=== PATIENT | female | born 1990 | race Caucasian/White ===

== ENCOUNTER 2016-11-14 11:29 | Emergency (ER) | payer BC ==
[2016-11-14 11:45] LABS: Urine Bacteria Absent (Absent); Urine Bilirubin Negative (Negative); Urine Glucose Negative (Negative); Urine Nitrite Negative (Negative)
[2016-11-14 12:44] VITALS: BP 110/70
--- NOTE | 2016-11-14 12:53 | ED ---
GI/ HPI - HPI Summary HPI Summary: 26F presents with dysuria and pelvic pain today. She thinks she has a UTI. denies any fevers, n/v/d or flank pain. She states she is trying to get . Patient is an employee here. - History of Current Complaint Chief Complaint: EDUrogenitalProblems Time Seen by Provider: 11/14/16 11:44 Stated Complaint: POSSIBLE UTI Pain Intensity: 5 - Allergy/Home Medications Allergies/Adverse Reactions: Allergies Allergy/AdvReac Type Severity Reaction Status Date / Time No Known Allergies Allergy Verified 11/14/16 12:17 PMH/Surg Hx/FS Hx/Imm Hx Endocrine/Hematology History: Denies: Hx Anticoagulant Therapy Cardiovascular History: Denies: Hx Hypertension Infectious Disease History: No Infectious Disease History: Denies: Traveled Outside the [place] in Last 30 Days - Family History Known Family History: Positive: Hypertension - Social History Alcohol Use: Rare Substance Use Type: Reports: None Smoking Status (MU): Never Smoked Tobacco Review of Systems Negative: Fever Negative: Chest Pain Negative: Shortness Of Breath Positive: dysuria, frequency. Negative: flank pain All Other Systems Reviewed And Are Negative: Yes Physical Exam Triage Information Reviewed: Yes Vital Signs On Initial Exam: Initial Vitals Temp Pulse Resp BP Pulse Ox 98.2 F 77 18 113/62 100 11/14/16 12:16 11/14/16 12:16 11/14/16 12:16 11/14/16 12:16 11/14/16 12:16 Vital Signs Reviewed: Yes Appearance: Positive: Well-Appearing Skin: Positive: Warm, Dry Head/Face: Positive: Normal Head/Face Inspection Eyes: Positive: Normal, Conjunctiva Clear Respiratory/Lung Sounds: Positive: Clear to Auscultation, Breath Sounds Present Cardiovascular: Positive: Normal, RRR Abdomen Description: Positive: Nontender, Soft Bowel Sounds: Positive: Present Diagnostics - Vital Signs Vital Signs Temp Pulse Resp BP Pulse Ox 11/14/16 12:41 99.2 F 87 16 110/70 11/14/16 12:16 98.2 F 77 18 113/62 100 - Laboratory Lab Results: Lab Results 11/14/16 Range/Units 11:30 Urine Color Yellow Urine Appearance Cloudy Urine pH 7.0 (5-9) Ur Specific [place] 1.005 L (1.010-1.030) Urine Protein Negative (Negative) Urine Ketones Negative (Negative) Urine Blood 3+ H (Negative) Urine Nitrate Negative (Negative) Urine Bilirubin Negative (Negative) Urine Urobilinogen Negative (Negative) Ur Leukocyte Esterase 3+ H (Negative) Urine WBC (Auto) 3+(>20/hpf) H (Absent) Urine RBC (Auto) 1+(3-5/hpf) H (Absent) Ur Squamous Epith Cells Present H (Absent) Urine Bacteria Absent (Absent) Urine Glucose Negative (Negative) Lab Statement: Any lab studies that have been ordered have been reviewed, and results considered in the medical decision making process. GIGU Course/Dx - Course Course Of Treatment: 26 F presents with dysuria and frequency today. no fever, flank pain, n/v. urine shows WBC and leuko esterase. dicussed has uti initially patient said was not so ordered bactrim which patient took but then patient says is potential could be pregant so switched it to macrobid and told to stop bactrim. patient understands and agrees with plan. - Diagnoses Differential Diagnoses - Female: Ovarian Cyst, Urinary Tract Infection, Ureteral Calculi Provider Diagnoses: Urinary tract infection Discharge - Discharge Plan Condition: Stable Disposition: HOME Prescriptions: Nitrofurantoin Monohyd Macro [Macrobid] 100 mg PO BID #9 cap Phenazopyridine TAB* [Pyridium 100 mg TAB*] 100 mg PO TID #6 tab Sulfamethox/Trimethoprim DS* [Bactrim DS 800/160 TAB*] 1 tab PO BID #10 tab Referrals: No Primary Care Phys,NOPCP [Primary Care Provider] - Additional Instructions: Take macrobid twice a day for 5 days take pyridium three times a day for two days Drink plenty of fluids Return to ED if develop fever, n/v or any new or worsening symptoms
--- NOTE | 2016-11-16 08:54 | PN ---
Progress Note - Progress Note Note: Patient was here for complaint and diagnosed with UTI. Urine culture preliminary results showed growth of E. coli 25-50,000. Patient was placed on Macrobid. Will wait for final sensitivity results. No change or further action needed at this time.
--- NOTE | 2016-11-17 08:01 | PN ---
Progress Note - Progress Note Note: Urine culture grew E. Coli and was placed on Macrobid on discharge. Sensitivity results show susceptibility to Macrobid with possible later change to Bactrim as both appeared to be prescribed, Both show susceptibility, therefore no further action needed at this time.
== END 2016-11-14 12:41 | disposition home or self-care (01) ==
LOC: ED 11:29
DX: N39.0 Urinary tract infection, site not specified (principal); R30.0 Dysuria; R10.2 Pelvic and perineal pain
CPT/HCPCS: 81003; 81015; 87077; 87086; 87186; 99282